=== PATIENT | male | born 1980 | race Two or more races ===

== ENCOUNTER 2020-01-12 06:10 | Day surgery (SDC) | payer OTHER ==
[~2020-01-12 06:10] MED LIST: BUPROPION HCL75 MG
== END 2020-01-12 10:40 | disposition home or self-care (01) ==
LOC: AMB-ENDOS 06:10
PROVIDERS: ATTEND Surgery
DX: D12.8 Benign neoplasm of rectum (principal); K64.8 Other hemorrhoids; Z12.11 Encounter for screening for malignant neoplasm of colon